=== PATIENT | female | born 1975 | race Asian ===

== ENCOUNTER 2018-11-10 13:21 | Emergency (ER) | payer SELFPAY ==
--- NOTE | 2018-11-10 14:46 | ER Document Report ---
ED Medical Screen (RME) - General Chief Complaint: Chest Pain > 30 Stated Complaint: CHEST PAIN Time Seen by Provider: 11/10/18 14:39 Mode of Arrival: Ambulatory Information source: Patient Notes: 43-year-old female with a history of depression and anxiety who presents to the emergency room with left chest pain for the past 2 days. Patient states that the pain is coming on but mostly states since yesterday morning. She denies any shortness of breath. She is not followed by TRAVEL OUTSIDE OF THE [place] IN LAST 30 DAYS: No - Related Data Allergies/Adverse Reactions: No Known Allergies Allergy (Verified 11/10/18 13:23) Past Medical History Renal/ Medical History: Denies: Hx Peritoneal Dialysis Physical Exam - Vital signs Vitals: Temp Pulse Resp BP Pulse Ox 98.7 F 68 20 113/74 100 11/10/18 14:13 11/10/18 14:13 11/10/18 14:13 11/10/18 14:13 11/10/18 14:13 Course - Vital Signs Vital signs: Temp Pulse Resp BP Pulse Ox 98.7 F 68 20 113/74 100 11/10/18 14:13 11/10/18 14:13 11/10/18 14:13 11/10/18 14:13 11/10/18 14:13
--- NOTE | 2018-11-10 15:08 | RADIOLOGY REPORT (SQ) ---
EXAM DESCRIPTION: CHEST SINGLE VIEW COMPLETED DATE/TIME: 11/10/2018 2:56 pm REASON FOR STUDY: chest pain COMPARISON: None. EXAM PARAMETERS: NUMBER OF VIEWS: One view. TECHNIQUE: Single frontal radiographic view of the chest acquired. RADIATION DOSE: NA LIMITATIONS: None. FINDINGS: LUNGS AND PLEURA: No opacities, masses or pneumothorax. No pleural effusion. MEDIASTINUM AND HILAR STRUCTURES: No masses. Contour normal. HEART AND VASCULAR STRUCTURES: Heart normal in size. Normal vasculature. BONES: No acute findings. HARDWARE: Curvilinear radiodensity overlies left axilla, etiology uncertain. OTHER: No other significant finding. IMPRESSION: No evidence of acute intrathoracic process. Curvilinear radiodensity overlies left axilla, etiology uncertain and presumably outside the patient. TECHNICAL DOCUMENTATION: JOB ID: [id number] [employer]- All Rights Reserved Reading location - IP/workstation name: [email or web address]
[2018-11-10 16:26] LABS: ABSOLUTE EOSINOPHILS # (AUTO) 0.3 10^3/uL (0.0-0.6); ABSOLUTE LYMPHOCYTES (AUTO) 3.5 10^3/uL (0.5-4.7); ABSOLUTE MONOCYTES (AUTO) 0.8 10^3/uL (0.1-1.4); ABSOLUTE NEUT (AUTO) 5.4 10^3/uL (1.7-8.2); BASOPHILS % (AUTO) 0.3 % (0-2); EOSINOPHILS % (AUTO) 2.6 % (0-6); HEMATOCRIT 41.9 % (36.0-47.0); HEMOGLOBIN 14.4 g/dL (12.0-15.5); MEAN CORPUSCULAR HEMOGLOBIN 31.4 pg (27.0-33.4); MEAN CORPUSCULAR HGB CONC 34.3 g/dL (32.0-36.0); MEAN CORPUSCULAR VOLUME 92 fl (80-97); MONOCYTES % (AUTO) 8.4 % (3-13); PLATELET COUNT 249 10^3/uL (150-450); RED BLOOD COUNT 4.58 10^6/uL (3.72-5.28); RED CELL DISTRIBUTION WIDTH 12.8 % (11.5-14.0); SEGMENTED NEUTROPHILS % (AUTO) 53.7 % (42-78); TOTAL CELLS COUNTED % (AUTO) 100 %
[2018-11-10 16:39] LABS: ALANINE AMINOTRANSFERASE 15 U/L (9-52); ALBUMIN 4.4 g/dL (3.5-5.0); ALKALINE PHOSPHATASE 59 U/L (38-126); ANION GAP 8 (5-19); ASPARTATE AMINO TRANSFERASE 14 U/L (14-36); BILIRUBIN,DIRECT 0.2 mg/dL (0.0-0.4); BILIRUBIN,TOTAL 0.3 mg/dL (0.2-1.3); BLOOD UREA NITROGEN 11 mg/dL (7-20); CALCIUM 9.5 mg/dL (8.4-10.2); CARBON DIOXIDE 28 mmol/L (22-30); CHLORIDE 103 mmol/L (98-107); CREATINE KINASE 30 U/L (30-135); GLUCOSE 95 mg/dL (75-110); POTASSIUM 4.5 mmol/L (3.6-5.0); SODIUM 138.5 mmol/L (137-145); TOTAL PROTEIN 7.3 g/dL (6.3-8.2)
[2018-11-10 16:52] LABS: CREATINE KINASE MB < 0.22 ng/mL (<4.55); TROPONIN I < 0.012 ng/mL
--- NOTE | 2018-11-10 19:34 | EKG REPORT ---
SEVERITY:- NORMAL ECG - SINUS RHYTHM : Confirmed by: Lizy Jane MD 10-Nov-2018 19:33:32
[2018-11-10] MEDS ORDERED: MORPHINE SULFATE 10 MG/ML INJ IV ONE (19:40)
[2018-11-10] MEDS ORDERED: KETOROLAC TROMETHAMINE INJ/PF 30 MG/1 ML SDV IV ONE (19:40)
[2018-11-10] MEDS ORDERED: ONDANSETRON HCL INJ/PF 4 MG/2 ML SDV IV ONE (19:40)
--- NOTE | 2018-11-10 19:49 | ER Document Report ---
ED General - General Chief Complaint: Chest Pain > 30 Stated Complaint: CHEST PAIN Time Seen by Provider: 11/10/18 14:39 Mode of Arrival: Ambulatory Information source: Relative, [facility] Records Notes: 43-year-old female with history of depression, anxiety, not currently on medication presents with complaint of left-sided chest pain that started 1 day prior to arrival. Patient states initially the pain was intermittent, pressure- like and without radiation. She states this morning the pain has remained constant. She states that it is worse with movement, improved when she raises her arm over her head. Patient also states that she feels like her breasts are more swollen and her underarms are also swollen. She denies any associated nausea, diaphoresis. She states when the pain comes on it does make her short of breath. Patient denies any recent illness, cough, cold, injury to the chest, history of PE, DVT, lower extremity edema, recent surgery, recent travel, history of cancer. Patient has surgical history of hysterectomy. TRAVEL OUTSIDE OF THE [place] IN LAST 30 DAYS: No - HPI Onset: Yesterday Onset/Duration: Gradual, Persistent, Worse Quality of pain: Pressure Severity: Moderate Pain Level: 2 Associated symptoms: Chest pain, Shortness of breath. denies: Nonproductive cough, Productive cough, Fever, Headache, Leg swelling, Nausea, Sweating Exacerbated by: Movement Relieved by: Denies Similar symptoms previously: Yes Recently seen / treated by doctor: No - Related Data Allergies/Adverse Reactions: No Known Allergies Allergy (Verified 11/10/18 13:23) Past Medical History - General Information source: Patient - Social History Smoking Status: Former Smoker Frequency of alcohol use: None Drug Abuse: None Lives with: Spouse/Significant other Family History: Reviewed & Not Pertinent Patient has suicidal ideation: No Patient has homicidal ideation: No Renal/ Medical History: Denies: Hx Peritoneal Dialysis Psychiatric Medical History: Reports: Hx Anxiety Review of Systems - Review of Systems Notes: REVIEW OF SYSTEMS: CONSTITUTIONAL : Denies fever, chills, or sweats. Denies recent illness. Denies weight loss, recent hospitalizations. EENT: Denies visual changes, eye pain. Denies sore throat, oral lesions, difficulty swallowing. CARDIOVASCULAR: Denies palpitations. Denies lower extremity edema. RESPIRATORY: Denies cough. wheezing. GASTROINTESTINAL: Denies abdominal pain or distention. Denies nausea, vomiting, or diarrhea. Denies blood in vomitus, stools, or per rectum. Denies black, tarry stools. Denies constipation. GENITOURINARY: Denies difficulty urinating, painful urination, frequency, blood in urine, or vaginal discharge. MUSCULOSKELETAL: Denies back or neck pain or stiffness. Denies joint pain or swelling. SKIN: Denies rash, lesions or sores. HEMATOLOGIC : Denies easy bruising or bleeding. LYMPHATIC: Denies swollen glands. NEUROLOGICAL: Denies confusion or altered mental status. Denies loss of consciousness. Denies dizziness or lightheadedness. Denies headache. Denies weakness or paralysis. Denies problems difficulty with ambulation, slurred speech. Denies sensory loss, numbness, or tingling. Denies seizures. PSYCHIATRIC: Denies anxiety or stress. Denies depression, suicidal ideation, or homicidal ideation. Denies visual or auditory hallucinations. Physical Exam - Vital signs Vitals: Temp Pulse Resp BP Pulse Ox 99.1 F 62 15 113/102 H 99 11/10/18 13:25 11/10/18 13:25 11/10/18 13:25 11/10/18 13:25 11/10/18 13:25 - Notes Notes: PHYSICAL EXAMINATION: GENERAL: Well-appearing, well-nourished and in no acute distress. HEAD: Atraumatic, normocephalic. EYES: Pupils equal round and reactive to light, extraocular movements intact, conjunctiva are normal. ENT: Nares patent, oropharynx clear without exudates. Moist mucous membranes. NECK: Normal range of motion, supple without lymphadenopathy LUNGS: Breath sounds clear to auscultation bilaterally and equal. No wheezes rales or rhonchi. HEART: Regular rate and rhythm without murmurs ABDOMEN: Soft, nontender, nondistended abdomen. No guarding, no rebound. No masses appreciated. Female : deferred Musculoskeletal: Normal range of motion, no pitting or edema. No cyanosis. Lymph: No axillary, cervical, supraclavicular adenopathy NEUROLOGICAL: Cranial nerves grossly intact. Normal speech, normal gait. Normal sensory, motor exams PSYCH: Normal mood, normal affect. SKIN: Warm, Dry, normal turgor, no rashes or lesions noted. Course - Re-evaluation Re-evalutation: 11/10/18 19:48 Laboratory 11/10/18 11/10/18 11/10/18 15:00 15:00 15:00 WBC 10.0 RBC 4.58 Hgb 14.4 Hct 41.9 MCV 92 MCH 31.4 MCHC 34.3 RDW 12.8 Plt Count 249 Seg Neutrophils % 53.7 Lymphocytes % 35.0 Monocytes % 8.4 Eosinophils % 2.6 Basophils % 0.3 Absolute Neutrophils 5.4 Absolute Lymphocytes 3.5 Absolute Monocytes 0.8 Absolute Eosinophils 0.3 Absolute Basophils 0.0 Sodium 138.5 Potassium 4.5 Chloride 103 Carbon Dioxide 28 Anion Gap 8 BUN 11 Creatinine 0.64 Est GFR ( Amer) > 60 Est GFR (Non-Af Amer) > 60 Glucose 95 Calcium 9.5 Total Bilirubin 0.3 Direct Bilirubin 0.2 Neonat Total Bilirubin Not Reportable Neonat Direct Bilirubin Not Reportable Neonat Indirect Bili Not Reportable AST 14 ALT 15 Alkaline Phosphatase 59 Creatine Kinase 30 CK-MB (CK-2) < 0.22 Troponin I < 0.012 Total Protein 7.3 Albumin 4.4 11/10/18 18:15 WBC RBC Hgb Hct MCV MCH MCHC RDW Plt Count Seg Neutrophils % Lymphocytes % Monocytes % Eosinophils % Basophils % Absolute Neutrophils Absolute Lymphocytes Absolute Monocytes Absolute Eosinophils Absolute Basophils Sodium Potassium Chloride Carbon Dioxide Anion Gap BUN Creatinine Est GFR ( Amer) Est GFR (Non-Af Amer) Glucose Calcium Total Bilirubin Direct Bilirubin Neonat Total Bilirubin Neonat Direct Bilirubin Neonat Indirect Bili AST ALT Alkaline Phosphatase Creatine Kinase CK-MB (CK-2) Troponin I < 0.012 Total Protein Albumin Chest X-Ray 11/10/18 14:44 IMPRESSION: No evidence of acute intrathoracic process. Curvilinear radiodensity overlies left axilla, etiology uncertain and presumably outside the patient. Temp Pulse Resp BP Pulse Ox 98.7 F 68 17 113/70 100 11/10/18 14:13 11/10/18 14:13 11/10/18 17:02 11/10/18 17:02 11/10/18 17:02 43-year-old female presented with complaint of left-sided chest pain that started 1 day prior to arrival. Patient describes the pain as pressure-like. Vital signs reviewed and within normal limits upon arrival. Patient was placed on senior sql dba and EKG was obtained which showed the patient to be in normal sinus rhythm at a rate of 69. No previous EKGs are available to compare. CBC, CMP and cardiac enzymes including delta troponin are within normal limits. Chest x-ray shows evidence of acute intrathoracic process. Patient is PERC negative. Patient did receive aspirin, morphine, Zofran and Toradol during her ED course. HEART Score: History-0 ECG-0 Age-0 Risk Factors-1 Troponin-0 Total: 1 If HEART score is = 3 AND both troponin measurements are normal, the 30 day risk of a major adverse cardiac event (all-cause mortality, myocardial infarction or need for coronary revascularization) is < 1% (Sensitivity 100%, NPV 100%). Chest pain in a patient without evidence of cardiac or other serious etiology on workup today. I discussed with patient that, based on their age, risk factors and emergency department testing today, the likelihood that their symptoms are related to a heart attack is very low (estimated risk of heart attack or over the next 30 days of less than 1%). The patient demonstrates decision making capacity and has verbalized an understanding of these risks to me. Based on this, the patient has chosen to follow-up as an outpatient. Usual chest pain return precautions reviewed. The patient states understanding and agreement with this plan. 11/10/18 19:50 11/10/18 19:51 Patient was evaluated and treated as appropriate for the patient's presenting s ymptoms and complaint, with consideration of any critical or life threatening conditions that may be associated with their obtained history and exam as noted above. All results were discussed with patient and her . Patient provided the opportunity to ask questions, and express concerns. Patient was educated on treatments based on their presumed diagnosis as noted above. At this time we will discharge the patient with return precautions and follow-up recommendations. Verbal discharge instructions given a the bedside. Medication warnings reviewed. Patient is in agreement with this plan and has verbalized understanding of return precautions. After careful consideration I feel that that patient can be safely discharged from the emergency department, they were advised to followup with a primary care physician in 2-3 days. Dictation on this chart was performed using voice recognition software and may result in unintended grammatical, spelling, syntax or errors. - Vital Signs Vital signs: Temp Pulse Resp BP Pulse Ox 98.9 F 59 L 16 111/81 97 11/10/18 20:21 11/10/18 20:21 11/10/18 20:21 11/10/18 20:21 11/10/18 20:21 - Laboratory Result Diagrams: 11/10/18 15:00 11/10/18 15:00 - Diagnostic Test Radiology reviewed: Image reviewed, Reports reviewed - EKG Interpretation by Me EKG shows normal: Sinus rhythm Rate: Normal Rhythm: NSR When compared to previous EKG there are: Previous EKG unavailable Discharge - Discharge Clinical Impression: Chest pain Qualifiers: Chest pain type: unspecified Qualified Code(s): R07.9 - Chest pain, unspecified Dyspnea Qualifiers: Dyspnea type: unspecified Qualified Code(s): R06.00 - Dyspnea, unspecified Condition: Good Disposition: HOME, SELF-CARE Instructions: Chest Pain of Unclear Cause ([facility]) Additional Instructions: You were seen today for chest pain. The exact cause of your pain is unclear. However, based on your cardiac enzyme testing, chest x-ray, and EKG it does not appear that it is from an immediately life-threatening cause at this time. Although your testing here is normal is critical that you follow-up with your primary care physician for continued evaluation of this chest pain and possible stress testing. I recommended you see your physician within the next 24-48 hours to be evaluated for consideration of a stress test. Please return to emergency department immediately if you have worsening of your chest pain, shortness of breath, vomiting, become unable to exert yourself due to pain or difficulty breathing, you pass out, or have any pain that radiates into your arms, jaw, or back. Please also return if you have any additional symptoms that are concerning to you. Recommendations: It is recommended to followup with a primary care doctor within the next 2 days. If you do not have a primary care doctor or you are unable to get an apointment during that time, I left the number for some internal medicine physicians that are affiliated with this [facility]. Dr. Abad Patterson Heard [address], [place] [address] [phone] Dr Agustin Address: [address] [place] [address] [place] [address]
[2018-11-10 20:22] VITALS: BP 111/81
== END 2018-11-10 20:23 | disposition home or self-care (01) ==
LOC: ER 13:21
DX: R07.9 Chest pain, unspecified (principal); R06.00 Dyspnea, unspecified; F32.9 Major depressive disorder, single episode, unspecified; F41.9 Anxiety disorder, unspecified; Z87.891 Personal history of nicotine dependence
CPT/HCPCS: 93005; 99285; 96374; 96375; 36415; 82553; 82550; 85025; 80053; 84484; 71045; 93010; J1885; J2270; J2405

== ENCOUNTER 2019-09-24 12:03 | Emergency (ER) | payer SELFPAY ==
--- NOTE | 2019-09-24 12:58 | EKG REPORT ---
SEVERITY:- NORMAL ECG - SINUS RHYTHM : Confirmed by: Lizy Jane MD 24-Sep-2019 12:57:44
[2019-09-24] MEDS ORDERED: KETOROLAC TROMETHAMINE INJ/PF 30 MG/1 ML SDV IM ONE (13:18)
--- NOTE | 2019-09-24 13:20 | ER Document Report ---
ED Medical Screen (RME) - General Chief Complaint: chest pain Stated Complaint: CHEST PAIN Time Seen by Provider: 09/24/19 13:17 Notes: Patient is a 44-year-old female with a history of depression anxiety who presents emergency department with a chief complaint of chest pain. Patient reports she has had a left-sided chest pain that radiates to the left shoulder and down the left arm for 3 days. Patient denies injury or fall. Patient repo rts initially she thought maybe it was a muscle but the pain has persisted without relief from Aleve. Patient reports she did vomit twice yesterday but has since been able to tolerate liquids and food without vomiting. Patient reports blurred vision as well for the past 3 days. TRAVEL OUTSIDE OF THE [place] IN LAST 30 DAYS: No - Related Data Allergies/Adverse Reactions: No Known Allergies Allergy (Verified 11/10/18 13:23) Past Medical History - Social History Chew tobacco use (# tins/day): No Frequency of alcohol use: Social Drug Abuse: None Renal/ Medical History: Denies: Hx Peritoneal Dialysis Psychiatric Medical History: Reports: Hx Anxiety Physical Exam - Vital signs Vitals: Temp Pulse Resp BP Pulse Ox 98.1 F 69 18 118/67 98 09/24/19 12:24 09/24/19 12:24 09/24/19 12:24 09/24/19 12:24 09/24/19 12:24 - Cardiovascular Rhythm: Regular Heart sounds: Normal auscultation, S1 appreciated, S2 appreciated Course - Re-evaluation Re-evalutation: 09/24/19 13:19 I have greeted and performed a rapid initial assessment of this patient. A comprehensive ED assessment and evaluation of the patient, analysis of test results and completion of the medical decision making process will be conducted by additional ED providers. - Vital Signs Vital signs: Temp Pulse Resp BP Pulse Ox 98.1 F 69 18 118/67 98 09/24/19 13:16 09/24/19 12:24 09/24/19 13:16 09/24/19 12:24 09/24/19 13:16
[2019-09-24 14:15] LABS: ALBUMIN 4.1 g/dL (3.5-5.0); ALKALINE PHOSPHATASE 74 U/L (38-126); ANION GAP 8 (5-19); ASPARTATE AMINO TRANSFERASE 16 U/L (14-36); BILIRUBIN,DIRECT 0.1 mg/dL (0.0-0.4); BILIRUBIN,TOTAL 0.3 mg/dL (0.2-1.3); BLOOD UREA NITROGEN 13 mg/dL (7-20); CALCIUM 9.1 mg/dL (8.4-10.2); CARBON DIOXIDE 23 mmol/L (22-30); CHLORIDE 109 mmol/L (98-107); GLUCOSE 105 mg/dL (75-110); POTASSIUM 4.5 mmol/L (3.6-5.0); TOTAL PROTEIN 7.2 g/dL (6.3-8.2)
--- NOTE | 2019-09-24 14:21 | RADIOLOGY REPORT (SQ) ---
EXAM DESCRIPTION: CHEST 2 VIEWS COMPLETED DATE/TIME: 09/24/2019 2:12 pm REASON FOR STUDY: left sided chest pain COMPARISON: 11/10/2018 EXAM PARAMETERS: NUMBER OF VIEWS: two views TECHNIQUE: Digital Frontal and Lateral radiographic views of the chest acquired. RADIATION DOSE: NA LIMITATIONS: none FINDINGS: LUNGS AND PLEURA: No opacities, masses or pneumothorax. No pleural effusion. MEDIASTINUM AND HILAR STRUCTURES: No masses or contour abnormalities. HEART AND VASCULAR STRUCTURES: Heart normal size. No evidence for failure. BONES: No acute findings. HARDWARE: None in the chest. OTHER: No other significant finding. IMPRESSION: NO ACUTE RADIOGRAPHIC FINDING IN THE CHEST. TECHNICAL DOCUMENTATION: JOB ID: [id number] [employer]- All Rights Reserved Reading location - IP/workstation name: [email or web address]
[2019-09-24 14:30] LABS: ABSOLUTE BASOPHILS # (AUTO) 0.1 10^3/uL (0.0-0.2); ABSOLUTE EOSINOPHILS # (AUTO) 0.2 10^3/uL (0.0-0.6); ABSOLUTE LYMPHOCYTES (AUTO) 2.8 10^3/uL (0.5-4.7); ABSOLUTE MONOCYTES (AUTO) 0.8 10^3/uL (0.1-1.4); BASOPHILS % (AUTO) 0.9 % (0-2); EOSINOPHILS % (AUTO) 2.5 % (0-6); HEMOGLOBIN 14.3 g/dL (12.0-15.5); LYMPHOCYTES % (AUTO) 28.4 % (13-45); MEAN CORPUSCULAR HEMOGLOBIN 31.6 pg (27.0-33.4); MEAN CORPUSCULAR HGB CONC 34.2 g/dL (32.0-36.0); MEAN CORPUSCULAR VOLUME 93 fl (80-97); RED BLOOD COUNT 4.53 10^6/uL (3.72-5.28); RED CELL DISTRIBUTION WIDTH 12.8 % (11.5-14.0); SEGMENTED NEUTROPHILS % (AUTO) 60.2 % (42-78); TOTAL CELLS COUNTED % (AUTO) 100 %; WHITE BLOOD COUNT 9.9 10^3/uL (4.0-10.5)
[2019-09-24 14:48] LABS: PLATELET COUNT 212 10^3/uL (150-450)
--- NOTE | 2019-09-24 16:39 | ER Document Report ---
ED General - General Chief Complaint: chest pain Stated Complaint: CHEST PAIN Time Seen by Provider: 09/24/19 13:17 Information source: Patient Notes: Ms. Briones is a 44 yo F w/ PMH hyperlipidemia not on any medication, depression and anxiety presenting to the ED for chest pain. Patient states her chest pain has been ongoing for the past 3 days. She describes the pain as an achy soreness to the left upper chest below the clavicle, her left breast extending posteriorly to her left shoulder blade and down her left arm. Patient states she took 1 Aleve this morning with minimal relief. She states that she has so reness and fullness to the left axilla. She denies any shortness of breath, cough or dyspnea with exertion. She denies any lower extremity edema, abdominal pain, nausea or vomiting. Patient denies any known ill contacts or recent travel. No lifting of heavy items. She states that she smoked 1.5 to 2 packs/day for approximately 30 years quit 14 months ago. No known early in the family or significant cardiac history. Patient denies any fever or chills, cough or abdominal pain. TRAVEL OUTSIDE OF THE [place] IN LAST 30 DAYS: No - Related Data Allergies/Adverse Reactions: No Known Allergies Allergy (Verified 11/10/18 13:23) Past Medical History - Social History Smoking Status: Former Smoker Chew tobacco use (# tins/day): No Frequency of alcohol use: Social Drug Abuse: None Family History: Reviewed & Not Pertinent Patient has suicidal ideation: No Patient has homicidal ideation: No Renal/ Medical History: Denies: Hx Peritoneal Dialysis Psychiatric Medical History: Reports: Hx Anxiety Review of Systems - Review of Systems Constitutional: See HPI EENT: No symptoms reported Cardiovascular: See HPI Respiratory: No symptoms reported Gastrointestinal: No symptoms reported Genitourinary: No symptoms reported Female Genitourinary: No symptoms reported Musculoskeletal: No symptoms reported Skin: No symptoms reported Hematologic/Lymphatic: No symptoms reported Neurological/Psychological: No symptoms reported Physical Exam - Vital signs Vitals: Temp Pulse Resp BP Pulse Ox 98.1 F 69 18 118/67 98 09/24/19 12:24 09/24/19 12:24 09/24/19 12:24 09/24/19 12:24 09/24/19 12:24 Interpretation: Normal - General General appearance: Appears well, Alert - HEENT Head: Normocephalic, Atraumatic Eyes: Normal Pupils: PERRL Mucous membranes: Dry - Respiratory Respiratory status: No respiratory distress Chest status: Nontender Breath sounds: Normal Chest palpation: Normal - Cardiovascular Rhythm: Regular Heart sounds: Normal auscultation Murmur: No Notes: Chest wall tenderness over the left sternum, left breast and left axilla. - Abdominal Inspection: Normal Distension: No distension Bowel sounds: Normal Tenderness: Nontender Organomegaly: No organomegaly - Back Back: Normal, Nontender - Extremities General upper extremity: Normal inspection, Nontender, Normal color, Normal ROM, Normal temperature General lower extremity: Normal inspection, Nontender, Normal color, Normal ROM, Normal temperature, Normal weight bearing. No: Kunal's sign - Neurological Neuro grossly intact: Yes Cognition: Normal Orientation: AAOx4 [place] Coma Scale Eye Opening: Spontaneous Rina Coma Scale Verbal: Oriented [place] Coma Scale Motor: Obeys Commands Rina Coma Scale Total: 15 Speech: Normal Motor strength normal: LUE, RUE, LLE, RLE Sensory: Normal - Psychological Associated symptoms: Normal affect, Normal mood - Skin Skin Temperature: Warm Skin Moisture: Dry Skin Color: Normal Notes: Increased left axillary fullness with some lymphadenopathy and mild tenderness palpation. Course - Re-evaluation Re-evalutation: Patient is generally well-appearing and nontoxic. Initial vitals within normal limits. Differential diagnosis includes muscular strain, viral illness, ACS (less likely) 09/24/19 16:57 Patient's risk factors for ACS include age, smoking history and hyperlipidemia. Will obtain repeat troponin at this point in time. Initial labs including CBC, CMP and initial troponin are all unremarkable. In addition chest x-ray is within normal limits and EKG is nonischemic. Repeat troponin is negative, will DC with return precautions. Patient will also be given Toradol IV 30 mg as this is likely muscular versus viral in nature. Patient also given a liter of fluid she does appear clinically dehydrated with dry mucous membranes. 09/24/19 19:11 Feels significantly improved after IV fluids and Toradol. Repeat troponin is negative. Patient instructed to apply heating pad and use Tylenol and ibuprofen as needed for pain. Patient given return precautions and instructed to follow- up with a primary care doctor as needed. - Vital Signs Vital signs: Temp Pulse Resp BP Pulse Ox 98.1 F 69 17 103/72 96 09/24/19 13:16 09/24/19 12:24 09/24/19 17:01 09/24/19 16:00 09/24/19 17:01 - Laboratory Result Diagrams: 09/24/19 13:40 09/24/19 13:40 Laboratory results interpreted by me: 09/24/19 13:40 Chloride 109 H - EKG Interpretation by Me EKG shows normal: Sinus rhythm, [place], Intervals, QRS Complexes, ST-T Waves Rate: Normal Rhythm: NSR Discharge - Discharge Clinical Impression: Chest wall pain, Axillary pain Condition: Good Disposition: HOME, SELF-CARE Instructions: Chest Wall Pain ([facility]), Chest Pain of Unclear Cause ([facility]) Additional Instructions: I would recommend that you use Tylenol 650 mg every 6-8 hours in addition to ibuprofen 800 mg every 8 hours as needed for pain. I would also recommend you perform slow range of motion exercises and apply heat to the area. Follow-up with your primary care doctor as needed.
[2019-09-24] MEDS ORDERED: KETOROLAC TROMETHAMINE INJ/PF 30 MG/1 ML SDV IV ONE (16:52)
[2019-09-24] MEDS ORDERED: NORMAL SALINE 1000 ML 1,000 ML IV ONE (16:52)
[2019-09-24 19:12] VITALS: BP 112/72
== END 2019-09-24 19:40 | disposition home or self-care (01) ==
LOC: ER 12:03
DX: R07.89 Other chest pain (principal); M79.622 Pain in left upper arm; E78.5 Hyperlipidemia, unspecified; F32.9 Major depressive disorder, single episode, unspecified
CPT/HCPCS: 93005; 99285; 96372; 96361; 96374; 36415; 85025; 80053; 84484; 71046; 93010; J1885; J7030

== ENCOUNTER 2020-03-03 17:09 | Emergency (ER) | payer BC ==
--- NOTE | 2020-03-03 17:44 | ER Document Report ---
ED Medical Screen (RME) - General Chief Complaint: Abnormal Lab Results Stated Complaint: ABNORMAL LABS Time Seen by Provider: 03/03/20 17:38 Primary Care Provider: TARYN RICHARDS MD [Primary Care Provider] - Follow up as needed Mode of Arrival: Wheelchair Information source: Patient Notes: 44-year-old female patient presenting to the emergency department with complaints of bilateral leg swelling, worse on the right that has been ongoing for 5 days as well as some shortness of breath patient describes as only on the right side of her chest. Patient saw her primary care provider for this yesterday. She sees Dr. Richards. She states they jason labs and Dr. Richards's office called her today and said that her d-dimer was elevated and they wanted her to come in for evaluation of DVT. Patient denies any history of DVT or PE, she has not had any recent travel, she does not take any oral hormone replacement, she is a non-smoker but is a former smoker. Swelling noted to right lower extremity. Patient has jeans on so exam is limited. Patient is alert, oriented, respirations equal and nonlabored, patient is in no acute distress at this time. I have greeted and performed a rapid initial assessment of this patient. A comprehensive ED assessment and evaluation of the patient, analysis of test results and completion of the medical decision making process will be conducted by additional ED providers. I have specifically instructed the patient or family members with the patient to immediately return to any nursing staff should anything change in the patient's condition or with their chief complaint. TRAVEL OUTSIDE OF THE [place] IN LAST 30 DAYS: No - Related Data Allergies/Adverse Reactions: No Known Allergies Allergy (Verified 11/10/18 13:23) Past Medical History Renal/ Medical History: Denies: Hx Peritoneal Dialysis Psychiatric Medical History: Reports: Hx Anxiety Physical Exam - Vital signs Vitals: Temp Pulse Resp BP Pulse Ox 97.6 F 66 16 116/55 L 97 03/03/20 17:13 03/03/20 17:13 03/03/20 17:13 03/03/20 17:13 03/03/20 17:13 Course - Vital Signs Vital signs: Temp Pulse Resp BP Pulse Ox 97.6 F 66 16 116/55 L 97 03/03/20 17:13 03/03/20 17:13 03/03/20 17:13 03/03/20 17:13 03/03/20 17:13 Doctor's Discharge - Discharge Referrals: TARYN RICHARDS MD [Primary Care Provider] - Follow up as needed
[2020-03-03 18:18] LABS: ABSOLUTE BASOPHILS # (AUTO) 0.1 10^3/uL (0.0-0.2); ABSOLUTE EOSINOPHILS # (AUTO) 0.2 10^3/uL (0.0-0.6); ABSOLUTE LYMPHOCYTES (AUTO) 2.2 10^3/uL (0.5-4.7); ABSOLUTE MONOCYTES (AUTO) 0.7 10^3/uL (0.1-1.4); BASOPHILS % (AUTO) 0.7 % (0-2); EOSINOPHILS % (AUTO) 1.9 % (0-6); HEMATOCRIT 36.5 % (36.0-47.0); HEMOGLOBIN 13.1 g/dL (12.0-15.5); LYMPHOCYTES % (AUTO) 21.7 % (13-45); MEAN CORPUSCULAR HEMOGLOBIN 32.9 pg (27.0-33.4); MEAN CORPUSCULAR HGB CONC 35.9 g/dL (32.0-36.0); MEAN CORPUSCULAR VOLUME 92 fl (80-97); MONOCYTES % (AUTO) 7.1 % (3-13); PLATELET COUNT 225 10^3/uL (150-450); RED BLOOD COUNT 3.99 10^6/uL (3.72-5.28); RED CELL DISTRIBUTION WIDTH 13.2 % (11.5-14.0); SEGMENTED NEUTROPHILS % (AUTO) 68.6 % (42-78); TOTAL CELLS COUNTED % (AUTO) 100 %; WHITE BLOOD COUNT 10.2 10^3/uL (4.0-10.5)
[2020-03-03 18:31] LABS: ALKALINE PHOSPHATASE 72 U/L (38-126); ANION GAP 6 (5-19); ASPARTATE AMINO TRANSFERASE 18 U/L (14-36); BILIRUBIN,TOTAL 0.2 mg/dL (0.2-1.3); BLOOD UREA NITROGEN 10 mg/dL (7-20); CALCIUM 9.3 mg/dL (8.4-10.2); CARBON DIOXIDE 25 mmol/L (22-30); CHLORIDE 103 mmol/L (98-107); GLUCOSE 97 mg/dL (75-110); POTASSIUM 4.5 mmol/L (3.6-5.0)
--- NOTE | 2020-03-03 19:11 | RADIOLOGY REPORT (SQ) ---
EXAM DESCRIPTION: VENOUS BILATERAL LOWER IMAGES COMPLETED DATE/TIME: 03/03/2020 7:00 pm REASON FOR STUDY: bilateral leg swelling, elevated D-dimer COMPARISON: None. TECHNIQUE: Dynamic and static rust scale and color images acquired of both lower extremity venous sy stems. Selected spectral images acquired with additional compression and augmentation maneuvers. Imag es stored on PACS. LIMITATIONS: None. FINDINGS: RIGHT LEG COMMON FEMORAL AND FEMORAL: Normal phasicity, compression and augmentation. No visualized echogenic m aterial on rust scale. No defects on color images. POPLITEAL: Normal compression and augmentation. No visualized echogenic material on rust scale. No de fects on color images. CALF VESSELS: Normal compression and augmentation. No visualized echogenic material on rust scale. No defects on color image. GSV AND SSV: Normal compression. No visualized echogenic material on rust scale. No defects on color images. ANY DEEP VENOUS INSUFFICIENCY: Not evaluated. ANY EVIDENCE OF POPLITEAL CYST: No. OTHER: No other significant finding. LEFT LEG COMMON FEMORAL AND FEMORAL: Normal phasicity, compression and augmentation. No visualized echogenic m aterial on rust scale. No defects on color images. POPLITEAL: Normal compression and augmentation. No visualized echogenic material on rust scale. No de fects on color images. CALF VESSELS: Normal compression and augmentation. No visualized echogenic material on rust scale. No defects on color images. GSV AND SSV: Normal compression. No visualized echogenic material on rust scale. No defects on color images. ANY DEEP VENOUS INSUFFICIENCY: Not evaluated. ANY EVIDENCE POPLITEAL CYST: No. OTHER: No other significant finding. IMPRESSION: NO EVIDENCE DVT OR SVT IN EITHER LEG. TECHNICAL DOCUMENTATION: JOB ID: [id number] 2010 [employer]- All Rights Reserved Reading location - IP/workstation name: [email or web address]
--- NOTE | 2020-03-03 19:12 | RADIOLOGY REPORT (SQ) ---
EXAM DESCRIPTION: CHEST SINGLE VIEW IMAGES COMPLETED DATE/TIME: 03/03/2020 6:59 pm REASON FOR STUDY: shortness of breath COMPARISON: 09/24/2019 EXAM PARAMETERS: NUMBER OF VIEWS: One view. TECHNIQUE: Single frontal radiographic view of the chest acquired. RADIATION DOSE: NA LIMITATIONS: None. FINDINGS: LUNGS AND PLEURA: No opacities, masses or pneumothorax. No pleural effusion. MEDIASTINUM AND HILAR STRUCTURES: No masses. Contour normal. HEART AND VASCULAR STRUCTURES: Heart normal in size. Normal vasculature. BONES: No acute findings. HARDWARE: None in the chest. OTHER: No other significant finding. IMPRESSION: NO ACUTE RADIOGRAPHIC FINDING IN THE CHEST. TECHNICAL DOCUMENTATION: JOB ID: [id number] 2010 [employer]- All Rights Reserved Reading location - IP/workstation name: [email or web address]
--- NOTE | 2020-03-03 20:18 | ER Document Report ---
ED General - General Chief Complaint: Leg Swelling Stated Complaint: ABNORMAL LABS Time Seen by Provider: 03/03/20 17:38 Primary Care Provider: TARYN RICHARDS MD [Primary Care Provider] - Follow up as needed Mode of Arrival: Wheelchair TRAVEL OUTSIDE OF THE [place] IN LAST 30 DAYS: No - HPI Notes: Patient is a 44-year-old female presents the emergency department for evaluation of bilateral leg edema, shortness of breath, and abnormal labs. The patient states that over the last several days she is had leg edema, right greater than left. She went and saw her primary care doctor. He did some blood work, found her d-dimer to be elevated, and sent her in for further evaluation. The patient has had some shortness of breath intermittently. She does report some paroxysmal nocturnal dyspnea. She denies any chest pain or chest tightness. She really cannot tell me if she short of breath at rest or with exertion, she is unsure as to other aggravating factors. The patient does admit that she is gained a significant amount of weight as of late. She quit smoking last year, admits to increased eating, increased sedentary lifestyle. At this point she denies any pain. She is breathing comfortably - Related Data Allergies/Adverse Reactions: No Known Allergies Allergy (Verified 11/10/18 13:23) Home Medications: Sertraline, Abilify Past Medical History - General Information source: Patient - Social History Smoking Status: Former Smoker Chew tobacco use (# tins/day): No Frequency of alcohol use: Heavy Drug Abuse: Marijuana Family History: Reviewed & Not Pertinent Patient has homicidal ideation: No - Past Medical History Cardiac Medical History: Reports: Hx Hypercholesterolemia Renal/ Medical History: Denies: Hx Peritoneal Dialysis Psychiatric Medical History: Reports: Hx Anxiety, Hx Depression Review of Systems - Review of Systems Cardiovascular: See HPI Respiratory: See HPI Musculoskeletal: See HPI -: Yes All other systems reviewed and negative Physical Exam - Vital signs Vitals: Temp Pulse Resp BP Pulse Ox 97.6 F 66 16 116/55 L 97 03/03/20 17:13 03/03/20 17:13 03/03/20 17:13 03/03/20 17:13 03/03/20 17:13 - Notes Notes: Vital signs reviewed, please refer to chart. Head is normocephalic, atraumatic. Pupils equal round, reactive to light. Neck is supple without meningismus. Heart is regular rate and rhythm. Lungs are clear to auscultation bilaterally. Abdomen is soft, nontender, normoactive bowel sounds throughout. Extremities without cyanosis, clubbing. She does have 1+ pitting edema noted to the feet, ankles, pretibial region. Posterior calves are nontender. Peripheral pulses are equal. Skin is warm and dry. Patient is awake, alert, neurological exam is nonfocal. Course - Re-evaluation Re-evalutation: 03/03/20 20:16 Patient presents to the emergency department for evaluation. She was initially seen through triage. Her edema is likely secondary to her weight gain and increased sedentary lifestyle. Her bilateral Dopplers were found to be negative. Blood work failed to reveal any significant abnormality. I did add a proBNP to evaluate her heart function. Patient is stable, oxygenating well on room air. She has no chest pain or pain at all at this time. We will continue to monitor. 03/03/20 21:12 Patient's proBNP is only very mildly elevated. I do not have a strong suspicion of CHF in this patient. She is given instructions to decrease sodium intake, increase water intake, keep legs elevated, increase physical activity mildly. She does state that they have been going down somewhat in the morning. She is also encouraged to wear compression stockings. She is to follow-up with her primary care provider next week, return to the emergency department worsening or new concerning symptoms of any sort. - Vital Signs Vital signs: Temp Pulse Resp BP Pulse Ox 97.6 F 66 20 133/86 H 96 03/03/20 17:39 03/03/20 17:13 03/03/20 20:44 03/03/20 20:46 03/03/20 20:44 - Laboratory Result Diagrams: 03/03/20 17:49 03/03/20 17:49 Laboratory results interpreted by me: 03/03/20 03/03/20 17:49 17:49 Sodium 134.1 L NT-Pro-B Natriuret Pep 151 H - Diagnostic Test Radiology reviewed: Reports reviewed Radiology results interpreted by me: 03/03/20 20:17 Chest X-Ray 03/03/20 17:42 IMPRESSION: NO ACUTE RADIOGRAPHIC FINDING IN THE CHEST. Venous Doppler Study 03/03/20 17:42 IMPRESSION: NO EVIDENCE DVT OR SVT IN EITHER LEG. - EKG Interpretation by Me Additional EKG results interpreted by me: 03/03/20 20:17 Sinus mechanism with rate of 62 bpm. Normal axis and intervals. No acute ST changes concerning for ischemia or infarction. Discharge - Discharge Clinical Impression: Lower extremity edema Condition: Stable Disposition: HOME, SELF-CARE Instructions: Dependent Edema ([facility]) Additional Instructions: No signs of blood clots were found in your legs today. As discussed, please decrease her sodium intake, increase your water intake, and consider compression stockings. Follow-up with your primary care provider next week. If you develop chest pain, difficulty breathing, or any other new or concerning symptoms, please return immediately to the emergency department for evaluation. Referrals: TARYN RICHARDS MD [Primary Care Provider] - Follow up as needed
[2020-03-03 21:30] VITALS: BP 100/77
--- NOTE | 2020-03-05 10:29 | EKG REPORT ---
SEVERITY:- NORMAL ECG - SINUS RHYTHM : Confirmed by: Mary Leung 05-Mar-2020 10:29:24
== END 2020-03-03 21:36 | disposition home or self-care (01) ==
LOC: ER 17:09
DX: R60.9 Edema, unspecified (principal); R06.02 Shortness of breath; R63.5 Abnormal weight gain; E78.00 Pure hypercholesterolemia, unspecified
CPT/HCPCS: 36415; 71045; 80053; 83880; 84484; 85025; 93005; 93010; 93970; 99284